=== PATIENT | female | born 1975 | race Caucasian/White ===

== ENCOUNTER 2018-03-12 11:43 | Inpatient (IN) | payer MEDICAID, OTHER ==
[~2018-03-12] VITALS: Ht 177.8 cm; Wt 44.0 kg
[2018-03-12 11:54] VITALS: BP 100/66
--- NOTE | 2018-03-12 11:54 | NUR ---
PATIENT AMBULATED TO BED 7 UNASSISTED
--- NOTE | 2018-03-12 12:00 | NUR ---
Note undone in EDM - 03/12/18 at 1452 by [email or web address] 42/F BIB FRIEND WITH C/O SOB X TODAY. PT REFERRED FROM PMD FOR PREURAL EFFUSION. HX OF LEFT BREAST CANCER IN 2014 & HAD L MASTECTOMY. PT STATED WENT TO [facility] X 10 DAYS AGO & GOT R LUNG DRIENDED. DENIES N/V/D; SKIN IS PINK/WARM/DRY; AAOX4 WITH EVEN AND STEADY GAIT; LUNGS CLEAR BL; TACHY 107/ MINS. PT DENIES ANY FEVER OR COUGH AT THIS TIME; PATIENT STATES PAIN OF 10/10 AT THIS TIME. PATIENT POSITIONED FOR COMFORT; HOB ELEVATED; BEDRAILS UP X2; BED DOWN. ER MD MADE AWARE OF PT STATUS.
--- NOTE | 2018-03-12 12:00 | NUR ---
42/F BIB FRIEND WITH C/O SOB X TODAY. PT REFERRED FROM PMD FOR PREURAL EFFUSION. HX OF LEFT BREAST CANCER IN 2014 & HAD L MASTECTOMY. PT STATED WENT TO [facility] X 10 DAYS AGO & GOT R LUNG DRIENDED. DENIES N/V/D; SKIN IS PINK/WARM/DRY; AAOX4 WITH EVEN AND UNSTEADY GAIT; LUNGS CLEAR BL; TACHY 107/ MINS. PT DENIES ANY FEVER OR COUGH AT THIS TIME; PATIENT STATES PAIN OF 10/10 AT THIS TIME. PATIENT POSITIONED FOR COMFORT; HOB ELEVATED; BEDRAILS UP X2; BED DOWN. ER MD MADE AWARE OF PT STATUS.
--- NOTE | 2018-03-12 12:04 | NUR ---
Patient being evaluated by physician at bedside.
[2018-03-12 12:36] LABS: BASOPHILS % (AUTO) 0.1 % (0.0-2.0); EOSINOPHILS % (AUTO) 0.2 % (0.0-4.0); HEMOGLOBIN 12.6 g/dL (12.0-16.0); LYMPHOCYTES # (AUTO) 1.2 K/uL (2.5-16.5); LYMPHOCYTES % (AUTO) 11.8 % (20.5-51.1); MEAN CORPUSCULAR HEMOGLOBIN 25 pg (27-31); MEAN CORPUSCULAR HGB CONC 32 g/dL (33-37); MONOCYTES # (AUTO) 0.5 K/uL (0.8-1.0); MONOCYTES % (AUTO) 5.3 % (1.7-9.3); NEUTROPHILS # (AUTO) 8.4 K/uL (1.8-7.7); NEUTROPHILS % (AUTO) 82.6 % (42.2-75.2); PLATELET COUNT (AUTO) 451 K/uL (140-450); RED BLOOD CELL COUNT(AUTO) 5.07 MIL/uL (4.20-5.40); RED CELL DISTRIBUTION WIDTH 15.2 % (11.6-13.7); WHITE BLOOD COUNT (AUTO) 10.1 K/uL (4.8-10.8)
--- NOTE | 2018-03-12 12:43 | NUR ---
X RAY AT BEDSIDE
[2018-03-12 12:47] LABS: PROTHROMBIN TIME 10.6 secs (10.8-13.4)
[2018-03-12 12:55] LABS: ANION GAP 13.7 (8-16); CARBON DIOXIDE 27.4 mmol/L (21-32); CREATININE 0.9 mg/dL (0.6-1.3); POTASSIUM 4.1 mmol/L (3.5-5.1)
[2018-03-12 13:01] LABS: ALBUMIN 2.2 g/dL (3.4-5.0); TOTAL BILIRUBIN 0.5 mg/dL (0.0-1.0)
--- NOTE | 2018-03-12 13:31 | NUR ---
Allen mnuoz in [facility] - 03/12/18 at 1332 by [employer]CO[facility] MONETT Patient being reevaluated by joann BRUNNER at bedside.
--- NOTE | 2018-03-12 13:31 | NUR ---
Patient being reevaluated by joann BRUNNER at bedside.
[2018-03-12] MEDS ORDERED: fentaNYL 0.05 MG/ML VIAL IVP ONE (13:55)
[2018-03-12] MEDS ORDERED: ONDANSETRON 4 MG/2 ML VIAL IVP ONE (13:55)
--- NOTE | 2018-03-12 14:09 | NUR ---
US AT BEDSIDE
[2018-03-12 14:26] LABS: APPEARANCE,URINE CLEAR (CLEAR); BILIRUBIN,URINE 2+ (NEGATIVE); BLOOD, URINE NEGATIVE (NEGATIVE); COLOR,URINE YELLOW (YELLOW); LEUKOCYTE ESTERASE ,URINE NEGATIVE (NEGATIVE); NITRITE, URINE NEGATIVE (NEGATIVE); UGLUCOSE NEGATIVE (NEGATIVE)
[2018-03-12] MEDS ORDERED: MORPHINE SULFATE 2 MG/ML SYR IVP PRN (14:45)
[2018-03-12] MEDS ORDERED: ALBUTEROL 0.083% 2.5 MG/3 ML NEBU IH PRN (14:45)
[2018-03-12] MEDS ORDERED: ACETAMINOPHEN 325 MG TAB PO PRN (14:45)
[2018-03-12] MEDS ORDERED: ONDANSETRON 4 MG/2 ML VIAL IVP PRN (14:45)
--- NOTE | 2018-03-12 15:35 | NUR ---
Patient will be admitted to care of DR AVILA. Admited to TELE. Will go to room 105B. Belongings list completed. Report to EV PANG.
[2018-03-12 15:55] VITALS: BP 110/75
--- NOTE | 2018-03-12 15:55 | NUR ---
RECEIVED PT FROM ER NURSE, ELIZABETH, VIA ODILON, PT IS AWAKE, ALERT AND ORIENTED WITH AN IV SALINE LOCK G.2O 1T THE RT FA, INTACT. PT WAS MADE COMFORTABLE ON THE BED. SIDE RAILS ARE UP AND CALL LIGHT WITHIN REACH. PLAN OF CARE WS DISCUSSED AND PT VERBALIZED UNDERSTANDING. VITAL SIGNS TAKEN AND IS STABLE. NO SIGN OF DISTRESS NOTED AND WILL CONTINUE TO MONITOR.
--- NOTE | 2018-03-12 16:00 | NUR ---
PT WAS TAKEN FROM THE ROOM BR RAD [facility] TO HAVE A THORACENTESIS DONE. NO SIGN OF DISTRESS NOTED ON THE PT.
--- NOTE | 2018-03-12 16:12 | NUR ---
ACCOMPANIED PT TO THE RADIOLOGY ROOM AND CONSENT WAS SIGNED BY THE PT FOR THE PARACENTESIS WHICH WILL BE DONE BY DR. PALACIO.
--- NOTE | 2018-03-12 16:20 | NUR ---
PARACENTESIS WAS BEING DONE TO THE PT BY DR. PALACIO. NO SIGN OF DISTRESS NOTED ON THE PT. WILL MONITOR.
--- NOTE | 2018-03-12 16:25 | NUR ---
PARACENTESIS WAS FINISHED AND OUTPUT OF 2,450 WAS TAKEN OUT FROM THE PT. SAMPLES WAS TAKEN TO LAB.
--- NOTE | 2018-03-12 16:40 | NUR ---
PT WAS BACK TO ROOM FROM PARACENTESIS ACCOMPANIED BY [employer] CORY.
[2018-03-12] MEDS ORDERED: HYDROcodone/APAP 7.5/325 MG 1 TAB PO PRN (16:50)
--- NOTE | 2018-03-12 16:55 | NUR ---
DR. AVILA CAME TO THE PT'S ROOM AND SPOKE TO THE PT REGARDING NA INTAKE AND WATER INTAKE. DR. AVILA SAID THAT SHE WILL REFER THE PT FOR A NUTRITION CONSULTATION AND ADVISED PT TO HAVE A LOW NA DIET.
--- NOTE | 2018-03-12 17:00 | NUR ---
PT IS AWAKE AND VITAL SIGNS WAS TAKEN AND IS STABLE. NO SIGN OF DISTRESS NOTED ON THE PT.
[2018-03-12] MEDS ORDERED: ALBUMIN HUMAN 25% 50 ML IV SCH (17:30)
[2018-03-12] MEDS: ALBUTEROL 0.083% 2.5 MG/3 ML NEBU IH SCH (19:00)
[2018-03-12] MEDS: IPRATROPIUM 0.02% 0.5 MG/2.5 ML NEBU IH SCH (19:00)
--- NOTE | 2018-03-12 19:30 | NUR ---
ENDORSED PT TO JACKSCREW MAN NURSELEILA FOR CONTINUITY OF CARE. PT IS STABLE AT THIS TIME.
--- NOTE | 2018-03-12 19:32 | NUR ---
RECEIVED PT AWAKE ON BED, COMPLAINING OF ABDOMINAL PAIN AND BACK PAIN, PER PT MORPHINE JUST WORKS FOR LESS THAN AN HOUR AND NORCO GIVES HER NAUSEA/VOMITING, WILL CALL DR AVILA, VITAL SIGNS STABLE, SAT-97% ON ROOM AIR, NO SOB NOTED, PLAN OF CARE DISCUSSED, SAFETY MEASURES IN PLACE, CALL LIGHT WITHIN REACH.
[2018-03-12] MEDS ORDERED: HYDROmorphone 1 MG/ML AMP IVP PRN (20:00)
[2018-03-12 21:00] VITALS: BP 107/72
[2018-03-12] MEDS: oxyCODONE 10 MG TABER PO SCH (21:04)
--- NOTE | 2018-03-12 21:05 | NUR ---
PT MEDICATED WITH SCHEDULED OXYCONTIN PO, MONITORED CLOSELY FOR ANY SIDE EFFECTS SUCH NAUSEA/VOMITING, ALL NEEDS ATTENDED.
[2018-03-12 22:17] LABS: POLYNUCLEAR, BODY FLUID 12 %
[2018-03-12] MEDS: HYDROmorphone 2 MG TAB PO PRN (23:30)
--- NOTE | 2018-03-12 23:30 | NUR ---
PT SEEN AMBULATING BACK TO BED FROM TOILET, COMPLAINING OF PAIN, VITAL SIGNS STABLE, ST ON TELE, MEDICATED PRN FOR PAIN WITH DILAUDID PO, MONITOR FOR ANY REACTION, TEA PROVIDED PER REQUEST, CONTINUE TO MONITOR CLOSELY.
[2018-03-13] VITALS: BP 108/74
[2018-03-13] MEDS: IPRATROPIUM 0.02% 0.5 MG/2.5 ML NEBU IH SCH ×3 (01:00→12:26)
[2018-03-13] MEDS: ALBUTEROL 0.083% 2.5 MG/3 ML NEBU IH SCH ×3 (01:00→12:27)
--- NOTE | 2018-03-13 02:43 | NUR ---
PT INCONTINENT OF URINE, SMALL BM NOTED, PERINEAL CARE DONE, REPOSITIONED AND OFFLOAD PRESSURE AREA, MONITORED CLOSELY. Addendum: 03/13/18 at 0245 by Branden Gonzalez RN CHARTED ON WRONG PT.
[2018-03-13 04:00] VITALS: BP 107/76
--- NOTE | 2018-03-13 05:10 | NUR ---
PT AMBULATORY TO BR WITH STEADY GAIT, HR WENT UP TO 130'S DURING AMBULATION, ASYMPTOMATIC, COMPLAINING OF BACK/LUNG PAIN, WILL MEDICATE PRN, NO SOB NOTED, MONITORED CLOSELY.
[2018-03-13] MEDS: HYDROmorphone 2 MG TAB PO PRN ×2 (05:28→16:22)
[2018-03-13 06:11] LABS: BASOPHILS % (AUTO) 0.2 % (0.0-2.0); EOSINOPHILS % (AUTO) 0.3 % (0.0-4.0); HEMATOCRIT 38.4 % (36-48); HEMOGLOBIN 12.6 g/dL (12.0-16.0); LYMPHOCYTES # (AUTO) 1.2 K/uL (2.5-16.5); LYMPHOCYTES % (AUTO) 9.6 % (20.5-51.1); MEAN CORPUSCULAR HEMOGLOBIN 25 pg (27-31); MEAN CORPUSCULAR HGB CONC 33 g/dL (33-37); MEAN CORPUSCULAR VOLUME 77.8 fL (80-94); MONOCYTES # (AUTO) 0.7 K/uL (0.8-1.0); MONOCYTES % (AUTO) 5.6 % (1.7-9.3); NEUTROPHILS # (AUTO) 10.3 K/uL (1.8-7.7); NEUTROPHILS % (AUTO) 84.3 % (42.2-75.2); PLATELET COUNT (AUTO) 440 K/uL (140-450); RED BLOOD CELL COUNT(AUTO) 4.94 MIL/uL (4.20-5.40); RED CELL DISTRIBUTION WIDTH 15.4 % (11.6-13.7); WHITE BLOOD COUNT (AUTO) 12.2 K/uL (4.8-10.8)
[2018-03-13 06:40] LABS: ALBUMIN 2.1 g/dL (3.4-5.0); ANION GAP 14.4 (8-16); CARBON DIOXIDE 24.8 mmol/L (21-32); CREATININE 0.8 mg/dL (0.6-1.3); POTASSIUM 4.2 mmol/L (3.5-5.1); TOTAL BILIRUBIN 0.5 mg/dL (0.0-1.0)
--- NOTE | 2018-03-13 07:08 | NUR ---
PT AWAKE, NO SIGNS OF DISTRESS, REPORT GIVEN TO RN FORTINO FOR CONTINUITY OF CARE.
--- NOTE | 2018-03-13 07:30 | NUR ---
RECEIVED PT AAOX4. NO SOB NOTED. NO C/O PAIN AT THIS TIME. IV TO RT HAND PATENT AND INTACT. CHEST, DIMINISHED AIR ENTRY TO THE BASES. ABDOMEN SOFT, SLIGHTLY DISTENDED, BOWEL SOUNDS PRESENT. NO EDEMA NOTED. INSTRUCTED PT TO CALL FOR ASSISTANCE, CALL LIGHT WITHIN REACH, PT VERBALIZED UNDERSTANDING.
[2018-03-13 08:06] VITALS: BP 104/77
[2018-03-13] MEDS: oxyCODONE 10 MG TABER PO SCH (09:23)
--- NOTE | 2018-03-13 10:45 | NUR ---
PT RESTING. NO SOB NOTED. NO SIGNS OF PAIN AT THIS TIME.
[2018-03-13 12:00] VITALS: BP 107/75
[2018-03-13] MEDS ORDERED: ONDA4ODT1 PO (15:38)
[2018-03-13] MEDS ORDERED: ACET-2858 PO (15:38)
[2018-03-13 16:00] VITALS: BP 97/65
--- NOTE | 2018-03-13 18:00 | NUR ---
DISCHARGE INSTRUCTIONS AND PRESCRIPTIONS GIVEN TO PT WHICH VERBALIZED FULL UNDERSTANDING OF THE TEACHINGS GIVEN AND THE NEED TO FOLLOW AT [facility], PCP AND ONCOLOGY WITHIN 1 WEEK. ARM BANDS AND IV REMOVED, CANNULA TIP INTACT.
--- NOTE | 2018-03-13 19:10 | NUR ---
PT WHEELED TO THE PARKING LOT IN STABLE CONDITION. NO COMPLAINTS MADE. D/C HOME WITH .
--- NOTE | 2018-03-15 07:41 | NUR ---
RETRO ER REPORT, H&P, CONSULT AND DISCHARGE INSTRUCTIONS FAXED TO [facility] NO DISCHARGE SUMMARY. FAX [phone]
== END 2018-03-13 18:05 | disposition home or self-care (01) ==
LOC: MED 11:43 → MTU 14:43
PROVIDERS: ADMIT Hospitalist; ATTEND Hospitalist
PROC: 0W9G3ZZ Drainage of Peritoneal Cavity, Percutaneous Approach (ICD-10-PCS; principal; 2018-03-12)
DX: R18.8 Other ascites (principal); E43 Unspecified severe protein-calorie malnutrition; J91.0 Malignant pleural effusion; C50.912 Malignant neoplasm of unspecified site of left female breast; J70.1 Chronic and other pulmonary manifestations due to radiation; Z90.12 Acquired absence of left breast and nipple; Z79.899 Other long term (current) drug therapy; Z92.3 Personal history of irradiation
CPT/HCPCS: 36415; 49083; 71045; 71250; 76700; 80053; 81003; 81025; 82948; 84484; 84703; 85025; 85610; 85730; 87070; 87081; 87205; 88305; 88342; 93005; 94640; 96374; 96375; 99285; J2001; J2270; J2405; J3010; J7030; J7613; J7644; P9046; Q0092